=== PATIENT | female | born 1985 | race Caucasian/White ===

== ENCOUNTER 2020-08-31 07:42 | Emergency (ER) | payer OTHER, BC ==
[2020-08-31] MEDS ORDERED: CEPHALEXIN500 M1 PO (08:45)
[2020-08-31 09:04] VITALS: BP 146/83
== END 2020-08-31 08:55 | disposition home or self-care (01) ==
LOC: ED 07:42
DX: S61.012A Laceration without foreign body of left thumb without damage to nail, initial encounter (principal); F17.290 Nicotine dependence, other tobacco product, uncomplicated; W26.8XXA Contact with other sharp object(s), not elsewhere classified, initial encounter; Y99.0 Civilian activity done for income or pay

== ENCOUNTER → 2020-09-21 | Outpatient (CLI) | payer OTHER, BC ==
[~2020-09-21] MED LIST: CEPHALEXIN500 M1 PO; CYCLOBENZAPRINE10 M1 PO
== END ==
LOC: RAD 15:52
DX: S62.525A Nondisplaced fracture of distal phalanx of left thumb, initial encounter for closed fracture (principal)

== ENCOUNTER → 2020-12-22 | Outpatient (CLI) | payer SELFPAY | LOC: RAD 17:10 | DX: H53.123 Transient visual loss, bilateral (principal) ==

== ENCOUNTER 2021-01-08 19:08 | Emergency (ER) | payer BC ==
[~2021-01-08] VITALS: Ht 177.8 cm; Wt 100.0 kg
[~2021-01-08 19:08] MED LIST changes: -CYCLOBENZAPRINE10 M1 PO
[2021-01-08] MEDS ORDERED: CYCLOBENZAPRINE10 M1 PO (21:05)
[2021-01-08 21:15] VITALS: BP 121/80
== END 2021-01-08 21:15 | disposition home or self-care (01) ==
LOC: ED 19:08
DX: M54.42 Lumbago with sciatica, left side (principal); M40.50 Lordosis, unspecified, site unspecified
CPT/HCPCS: J1885; J2360

== ENCOUNTER → 2021-05-25 | Outpatient (CLI) | payer MEDICAID ==
[~2021-05-25] MED LIST changes: +CYCLOBENZAPRINE10 M1 PO
== END ==
LOC: RAD 12:43
DX: M46.1 Sacroiliitis, not elsewhere classified (principal)

== ENCOUNTER 2023-07-29 19:05 | Emergency (ER) | payer MEDICAID ==
[~2023-07-29 19:05] MED LIST changes: +DULOXETINE60 MG PO; +ESZOPICLONE1 MG PO; +KETOROLAC10 MG PO; +LAMOTRIGINE100 M3 PO; +MELOXICAM15 MG PO; +NEURONTIN300 MG/CAP; +PREGABALIN100 MG PO; +TIZANIDINE2 MG PO
[2023-07-29] MEDS ORDERED: Meclizine 12.5 MG TAB PO ONE (20:00)
[2023-07-29 20:01] LABS: BASO # 0.05 K/mm3 (0.02-0.10); EOS # 0.21 K/mm3 (0.04-0.40); EOS % 1.9 % (1.0-5.0); HEMATOCRIT 41.2 % (37.0-47.0); HEMOGLOBIN 13.8 g/dL (12.5-16.0); LYMPH# 3.09 K/mm3 (1.50-4.00); MEAN CELL VOLUME 83 fl (78-100); MEAN CORPUSCULAR HEMOGLOBIN 28 pg (27-31); MEAN CORPUSCULAR HGB CONC 34 g/dL (33-37); MEAN PLATELET VOLUME 8.9 fl (7.4-10.4); NEU # 7.53 K/mm3 (1.40-6.50); PLATELET COUNT 337 K/mm3 (130-400); RED BLOOD COUNT 4.95 M/mm3 (4.10-5.30); RED CELL DISTRIBUTION WIDTH 12.6 % (11.5-14.5); WHITE BLOOD COUNT 11.3 K/mm3 (4.8-10.8)
[2023-07-29 20:08] LABS: CALCIUM 9.3 mg/dL (8.3-10.5)
[2023-07-29 20:10] LABS: TOTAL PROTEIN 6.8 g/dL (6.4-8.3)
[2023-07-29 20:11] LABS: TOTAL BILIRUBIN 0.3 mg/dL (0.2-1.2)
[2023-07-29] MEDS ORDERED: MECLIZINE PO (20:25)
[2023-07-29] MEDS ORDERED: Home Meclizine 12.5 MG #4 TABS/PACK PO ONE (20:30)
[2023-07-29] MEDS ORDERED: Home Ondansetron ODT 4 MG #2 ODT/PACK PO ONE (20:30)
[2023-07-29 20:33] VITALS: BP 145/90
== END 2023-07-29 20:32 | disposition home or self-care (01) ==
LOC: ED 19:05
PROVIDERS: Physician Assistant
DX: H81.10 Benign paroxysmal vertigo, unspecified ear (principal)

== ENCOUNTER 2023-11-06 14:59 | Emergency (ER) | payer MEDICAID ==
[~2023-11-06] VITALS: Ht 177.8 cm; Wt 117.7 kg
[~2023-11-06 14:59] MED LIST changes: +MECLIZINE PO
[2023-11-06] MEDS ORDERED: NP THYROID30 MG PO (15:10)
[2023-11-06] MEDS ORDERED: NS 1,000 ML IV ONE (15:15)
[2023-11-06 15:23] LABS: BASO # 0.06 K/mm3 (0.02-0.10); EOS # 0.24 K/mm3 (0.04-0.40); EOS % 1.8 % (1.0-5.0); HEMATOCRIT 46.2 % (37.0-47.0); HEMOGLOBIN 15.3 g/dL (12.5-16.0); LYMPH# 3.04 K/mm3 (1.50-4.00); MEAN CELL VOLUME 83 fl (78-100); MEAN CORPUSCULAR HEMOGLOBIN 28 pg (27-31); MEAN CORPUSCULAR HGB CONC 33 g/dL (33-37); MONO # 0.62 K/mm3 (0.20-0.80); PLATELET COUNT 349 K/mm3 (130-400); RED BLOOD COUNT 5.56 M/mm3 (4.10-5.30); RED CELL DISTRIBUTION WIDTH 12.8 % (11.5-14.5); WHITE BLOOD COUNT 13.2 K/mm3 (4.8-10.8)
[2023-11-06 15:29] LABS: ALBUMIN 4.5 g/dL (3.5-5.0); SODIUM 138 mmol/L (136-145)
[2023-11-06 15:31] LABS: CALCIUM 10.2 mg/dL (8.3-10.5)
[2023-11-06 15:32] LABS: GLUCOSE 101 mg/dL (65-105); TOTAL PROTEIN 7.6 g/dL (6.4-8.3)
[2023-11-06 15:33] LABS: CARBON DIOXIDE 19 mmol/L (22-29)
[2023-11-06 15:34] LABS: TOTAL BILIRUBIN 0.4 mg/dL (0.2-1.2)
[2023-11-06 15:37] LABS: AST-SGOT 28 U/L (5-34)
[2023-11-06 15:38] LABS: ALT/SGPT 43 U/L (0-55)
[2023-11-06] MEDS ORDERED: Ketorolac 30 MG/ML VIAL IV ONE (15:45)
[2023-11-06] MEDS ORDERED: Ondansetron 4 MG/2 ML VIAL IV ONE (15:45)
[2023-11-06 15:47] LABS: TROPONIN-I < 0.030 ng/mL (0.00-0.033)
[2023-11-06] MEDS ORDERED: Orphenadrine 60 MG/2ML AMP IV ONE (16:15)
[2023-11-06 16:39] VITALS: BP 129/91
== END 2023-11-06 16:43 | disposition home or self-care (01) ==
LOC: ED 14:59
PROVIDERS: Family Medicine
DX: M94.0 Chondrocostal junction syndrome [Tietze] (principal); E66.01 Morbid (severe) obesity due to excess calories; F17.290 Nicotine dependence, other tobacco product, uncomplicated; Z68.37 Body mass index [BMI] 37.0-37.9, adult
CPT/HCPCS: J1885; J2405; J7030

== ENCOUNTER 2024-02-14 21:41 | Emergency (ER) | payer MEDICAID ==
[~2024-02-14] VITALS: Ht 177.8 cm; Wt 118.2 kg
[~2024-02-14 21:41] MED LIST changes: +NP THYROID30 MG PO
[2024-02-14] MEDS ORDERED: PLAQUENIL 200M200 MG PO (21:50)
[2024-02-14] MEDS ORDERED: FLUTICASONE P15.8 ML NS (22:08)
[2024-02-14] MEDS ORDERED: CETIRIZINE HCL10 MG PO (22:08)
[2024-02-14] MEDS ORDERED: BENZONATATE100 M2 PO (22:09)
[2024-02-14] MEDS ORDERED: ZITHROMAX 250M250 MG PO (22:54)
[2024-02-14] MEDS ORDERED: AMOXICILLIN AND1 TA2 PO (22:54)
[2024-02-14] MEDS ORDERED: Amoxicillin/Clavulanate K+ 875/125 MG TAB PO ONE (23:00)
[2024-02-14] MEDS ORDERED: Azithromycin 250 MG TAB PO ONE (23:00)
[2024-02-14 23:10] VITALS: BP 141/98
== END 2024-02-14 23:10 | disposition home or self-care (01) ==
LOC: ED 21:41
DX: J02.9 Acute pharyngitis, unspecified (principal); Z87.891 Personal history of nicotine dependence; Z87.01 Personal history of pneumonia (recurrent)